=== PATIENT | male | born 1970 | race Caucasian/White ===

== ENCOUNTER 2019-03-04 09:11 | Day surgery (SDC) | payer BC ==
[~2019-03-04] VITALS: Ht 177.8 cm; Wt 82.8 kg
[2019-03-04 09:33] VITALS: BP 107/75; PULSE 71; TEMP 97.6
[2019-03-04 10:55] VITALS: BP 104/72; PULSE 68; TEMP 97
--- NOTE | 2019-03-04 10:55 | NUR ---
Pt arrived back to room via cart with Isaac RN, and this RN received report from [facility] [facility]. Pt awake, alert and oriented and easily ambulated to chair from cart. Upon assessment, pt's VSS and WNL, and he denies pain or nausea. Muffin and coffee brought per pt's request. Call light within reach and at bedside.
[2019-03-04 11:00] VITALS: BP 103/66; PULSE 62
--- NOTE | 2019-03-04 11:00 | NUR ---
Patient sitting comfortably in chair eating muffin and coffee. He is alert and oriented. VSS and WNL. Call light within reach
[2019-03-04 11:15] VITALS: BP 109/73; PULSE 61
--- NOTE | 2019-03-04 11:15 | NUR ---
Pt completed muffin and coffee without c/o nausea. Pt states that he is ready to go home. VSS and WNL. Call light within reach.
[2019-03-04 11:30] VITALS: BP 95/63; PULSE 58
--- NOTE | 2019-03-04 11:32 | NUR ---
Pt states that he is ready to go home. Pt meets criteria for discharge. VSS and WNL and pt denies nausea or pain. Reviewed discharge information with pt and including educational packet and what to do for further concerns/questions. Pt and expressed understanding and had no further questions.
== END 2019-03-04 11:38 | disposition home or self-care (01) ==
LOC: SDCO 09:11
DX: Z12.11 Encounter for screening for malignant neoplasm of colon (principal); F17.220 Nicotine dependence, chewing tobacco, uncomplicated; E78.5 Hyperlipidemia, unspecified; R31.29 Other microscopic hematuria; Z80.1 Family history of malignant neoplasm of trachea, bronchus and lung
CPT/HCPCS: J2704; J3010; J7120

== ENCOUNTER → 2020-01-12 | Outpatient (CLI) | payer BC | LOC: ZCOL.LAB 16:32 | DX: Z20.828 Contact with and (suspected) exposure to other viral communicable diseases (principal) ==

== ENCOUNTER 2020-11-09 06:53 | Day surgery (SDC) | payer BC ==
[~2020-11-09] VITALS: Ht 177.8 cm; Wt 87.9 kg
[2020-11-09] VITALS (7 sets, daily range): BP systolic 93–107; BP diastolic 68–86; PULSE 61–78; TEMP 97.6
[2020-11-09] MEDS ORDERED: ELIQUIS 5MG PO (07:06)
[2020-11-09] MEDS ORDERED: TOPROL XL 25MG25 MG PO ×2 (07:06→11:05)
[2020-11-09 07:31] LABS: HEMATOCRIT 44.1 % (42.0-52.0); HEMOGLOBIN 14.5 g/dl (13.5-18.0); MEAN CELL VOLUME 82 fl (80.0-100.0); MEAN CORPUSCULAR HEMOGLOBIN 27 pg (27.0-31.0); MEAN CORPUSCULAR HGB CONC 33 g/dl (33.0-37.0); MEAN PLATELET VOLUME 8.4 fl (7.4-10.4); PLATELET COUNT 326 K/mm3 (130-400); RED BLOOD COUNT 5.36 M/mm3 (4.20-5.60); REDCELL DISTRIBUTION WIDTH-CV 14.4 % (11.5-14.5)
[2020-11-09] MEDS ORDERED: ALEVE 220MG220 MG PO (07:32)
[2020-11-09 07:44] LABS: INR 1.1 (0.8-3.0); PROTHROMBIN TIME 11.8 SECONDS (9.7-12.8)
[2020-11-09 07:48] LABS: CALCIUM 8.8 mg/dL (8.4-10.2); CREATININE, serum 1.01 (0.66-1.25); MAGNESIUM 1.9 mg/dL (1.6-2.3); POTASSIUM 4.1 mmol/L (3.4-5.0)
[2020-11-09] MEDS ORDERED: TAMBOCOR50 MG PO (11:05)
--- NOTE | 2020-11-09 12:07 | NUR ---
Pt assisted out to 's car by wheelchair. INT was DC'd with catheter intact. Pt has tolerated PO without issue. Steady on feet in room. DC instructions reviewed with both pt and , and both expressed understanding.
== END 2020-11-09 12:07 | disposition home or self-care (01) ==
LOC: COL.CAR 06:53
PROVIDERS: Internal Medicine Adult Congenital Heart Disease
DX: I48.3 Typical atrial flutter (principal); R00.2 Palpitations; R06.09 Other forms of dyspnea; R09.89 Other specified symptoms and signs involving the circulatory and respiratory systems; Z20.822 Contact with and (suspected) exposure to COVID-19; Z79.899 Other long term (current) drug therapy; Z79.01 Long term (current) use of anticoagulants
CPT/HCPCS: J2704

== ENCOUNTER → 2024-03-01 | Outpatient (CLI) | payer BC ==
[~2024-03-01] MED LIST: ALEVE 220MG220 MG PO; ELIQUIS 5MG PO; FENTANYL 12MCG TD; OXY IR5 MG PO; TAMBOCOR50 MG PO; TOPROL XL 25MG25 MG PO
== END ==
LOC: MHCPAIN 08:22
DX: M47.817 Spondylosis without myelopathy or radiculopathy, lumbosacral region (principal); M54.50 Low back pain, unspecified
CPT/HCPCS: J0665